=== PATIENT | female | born 1995 | race Caucasian/White ===

== ENCOUNTER 2019-02-02 23:38 | Emergency (ER) | payer SELFPAY ==
[~2019-02-02] VITALS: Ht 160 cm; Wt 56.7 kg
--- OUTSIDE RECORDS SUMMARY | 2019-02-02 23:46 | XMS REPORT ---
Author Author STEPHANSHEMAR SCALES 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 Name Role Phone SHEMAR GONZALEZ Unavailable PROBLEMS Type Condition ICD9-CM Code [id number] Code Onset Dates Condition Status SNOMED Code Problem Dysuria R30.0 Active 54783366 Problem Weight loss R63.4 Active 196464525 Problem IUD (intrauterine device) in place Z97.5 Active 588996840 Problem Urinary frequency R35.0 Active 430357665 ALLERGIES No Known Allergies ENCOUNTERS Encounter Location Date Diagnosis [facility] [address] [id number] Aug, Caries K02.9 [facility] [address] [id number] Aug, Caries K02.9 ; Dental examination Z01.20 ; Dental plaque K03.6 and Encounter for prophylactic administration of fluoride Z29.3 [facility] [address] [id number] Jun, Dental examination Z01.20 [facility] [id number] [place] [address] Nov, Surveillance for control, intrauterine device Z30.431 ; Irregular menses N92.6 and Dysmenorrhea N94.6 [facility] [id number] [place] [address] Nov, Urinary tract infection without hematuria, site unspecified N39.0 ; Dysuria R30.0 ; Urinary frequency R35.0 ; Weight loss R63.4 ; IUD ( intrauterine device) in place Z97.5 ; Vaginal yeast infection B37.3 and Vaginal discharge N89.8 [facility] [address] [phone] 14 Feb, 2015 [facility] [id number], [place] [address] Feb, [facility] [id number] [address] Nov, [facility] [id number] [address] Nov, [facility] [address], [place] [address] Nov, [facility] [address] [address] Nov, [facility] [address], [place] [address] Nov, [facility] [address] [address] Nov, [facility] [address] [id number], [place] [address] Jun, IMMUNIZATIONS No Known Immunizations SOCIAL HISTORY Never Assessed REASON FOR VISIT ZACK Reyez TE #14. Dr. Aparicio evaluated this tooth for endo and gave poor prognosis/ PLAN OF CARE Activity Details Follow Up prn Reason:Restorative VITAL SIGNS Height 63.75 in 2018-09-24 Blood pressure systolic 112 mmHg 2018-09-24 Blood pressure diastolic 70 mmHg 2018-09-24 MEDICATIONS Medication Instructions Dosage Frequency Start Date End Date Duration Status Amoxicillin 500 mg Orally every 8 hrs 1 capsule 8h 7 days Not-Taking RESULTS No Results PROCEDURES Procedure Date Ordered Result Body Site EXTRAC ERUPTED TOOTH/EXPOSED ROOT Sep 24, 2018 EXTRAC ERUPTED TOOTH/EXPOSED ROOT Sep 24, 2018 EXTRAC ERUPTED TOOTH/EXPOSED ROOT Sep 24, 2018 INSTRUCTIONS MEDICATIONS ADMINISTERED No Known Medications MEDICAL (GENERAL) HISTORY Type Description Date Surgical History Appendectomy Surgical History Tonsillectomy & adenoidectomy Hospitalization History past surgery Hospitalization History Dehydration Hospitalization History pneumonia
--- OUTSIDE RECORDS SUMMARY | 2019-02-02 23:46 | XMS REPORT ---
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 Name Role Phone MIKE MARQUEZ Unavailable PROBLEMS Type Condition ICD9-CM Code [id number] Code Onset Dates Condition Status SNOMED Code Problem Dysuria R30.0 Active 31745503 Problem Weight loss R63.4 Active 324912895 Problem IUD (intrauterine device) in place Z97.5 Active 122257261 Problem Urinary frequency R35.0 Active [id number] ALLERGIES No Known Allergies ENCOUNTERS Encounter Location Date Diagnosis [facility] [id number] [place] [phone] Aug, Caries K02.9 [facility] [address] [id number] Aug, Caries K02.9 ; Dental examination Z01.20 ; Dental plaque K03.6 and Encounter for prophylactic administration of fluoride Z29.3 [facility] [id number] [place] [phone] Jun, Dental examination Z01.20 [facility] [address] [place] [address] Nov, Surveillance for control, intrauterine device Z30.431 ; Irregular menses N92.6 and Dysmenorrhea N94.6 [facility] [address] [place] [address] Nov, Urinary tract infection without hematuria, site unspecified N39.0 ; Dysuria R30.0 ; Urinary frequency R35.0 ; Weight loss R63.4 ; IUD ( intrauterine device) in place Z97.5 ; Vaginal yeast infection B37.3 and Vaginal discharge N89.8 [facility] [id number], [place] [address] 14 Feb, 2015 [facility] [id number] [address] Feb, [facility] [address], [place] [address] Nov, [facility] [id number], [place] [address] Nov, [facility] [id number], [place] [address] Nov, [facility] [id number], [place] [address] Nov, [facility] [address], [place] [address] Nov, [facility] [address] [address] Nov, [facility] [id number], [place] [address] Jun, IMMUNIZATIONS No Known Immunizations SOCIAL HISTORY Never Assessed REASON FOR VISIT PROPHY/CORY PLAN OF CARE Activity Details Follow Up ZEKE Reason:Multi Extrations Dr Nearing 1.5 hours VITAL SIGNS Height 63.75 in 2018-09-15 Blood pressure systolic 116 mmHg 2018-09-15 Blood pressure diastolic 66 mmHg 2018-09-15 MEDICATIONS Medication Instructions Dosage Frequency Start Date End Date Duration Status Amoxicillin 500 mg Orally every 8 hrs 1 capsule 8h 7 days Not-Taking RESULTS No Results PROCEDURES Procedure Date Ordered Result Body Site COMP ORAL EVALUATION - NEW/EST PT Sep 15, 2018 INTRAORL-PERIAPICAL 1 FILM 16242 Sep 15, 2018 TOPICAL FLUORIDE VARNISH Sep 15, 2018 BITEWINGS - THREE FILMS Sep 15, 2018 INTRAORL-PERIAPICAL EA ADD FILM Sep 15, 2018 INTRAORL-PERIAPICAL EA ADD FILM Sep 15, 2018 PROPHYLAXIS - ADULT Sep 15, 2018 PANORAMIC FILM SEE ALSO CODE 94124 Sep 15, 2018 INSTRUCTIONS MEDICATIONS ADMINISTERED No Known Medications MEDICAL (GENERAL) HISTORY Type Description Date Surgical History Appendectomy Surgical History Tonsillectomy & adenoidectomy Hospitalization History past surgery Hospitalization History Dehydration Hospitalization History pneumonia
--- OUTSIDE RECORDS SUMMARY | 2019-02-02 23:46 | XMS REPORT ---
Author Author STEPHANSHEMAR SCALES [facility] DENT[facility] Address Unknown Care Team Providers Care Hot Room Attendant Name Role Phone SHEMAR GONZALEZ Unavailable PROBLEMS Type Condition ICD9-CM Code SKA48-IR Code Onset Dates Condition Status SNOMED Code Problem Dysuria R30.0 Active 74981584 Problem Weight loss R63.4 Active 679134196 Problem IUD (intrauterine device) in place Z97.5 Active 372034912 Problem Urinary frequency R35.0 Active [id number] ALLERGIES No Known Allergies ENCOUNTERS Encounter Location Date Diagnosis [facility] [id number] [place] [phone] Aug, [facility] [id number] [place] [phone] Jun, Dental examination Z01.20 [facility] [id number] [place] [address] Nov, Surveillance for control, intrauterine device Z30.431 ; Irregular menses N92.6 and Dysmenorrhea N94.6 [facility] [id number] [place] [address] Nov, Urinary tract infection without hematuria, site unspecified N39.0 ; Dysuria R30.0 ; Urinary frequency R35.0 ; Weight loss R63.4 ; IUD ( intrauterine device) in place Z97.5 ; Vaginal yeast infection B37.3 and Vaginal discharge N89.8 [facility] [id number] [place] [address] Feb, [facility] [id number] [place] [address] Feb, [facility] [address] [address] Nov, [facility] [address] [facility] [id number] [place] [address] Nov, [facility] [address] [facility] [id number] [address] Nov, [facility] [address] [facility] [id number], [place] [address] Nov, [facility] [address] [facility] [id number], [place] [address] Nov, [facility] [address] [facility] [id number], [place] [address] Nov, [facility] [address] [facility] [id number], [place] [address] Jun, IMMUNIZATIONS No Known Immunizations SOCIAL HISTORY Never Assessed REASON FOR VISIT ALCON PLAN OF CARE Activity Details Follow Up prn Reason:CORY with HYG VITAL SIGNS Height 63.75 in 2018-07-15 Blood pressure systolic 112 mmHg 2018-07-15 Blood pressure diastolic 64 mmHg 2018-07-15 MEDICATIONS Medication Instructions Dosage Frequency Start Date End Date Duration Status Amoxicillin 500 mg Orally every 8 hrs 1 capsule 8h 07 days Active RESULTS No Results PROCEDURES Procedure Date Ordered Result Body Site LTD ORAL EVALUATION - PROBLEM FOCUS Jul 15, 2018 INTRAORL-PERIAPICAL 1 FILM 42409 Jul 15, 2018 BITEWING - SINGLE FILM Jul 15, 2018 INSTRUCTIONS MEDICATIONS ADMINISTERED No Known Medications MEDICAL (GENERAL) HISTORY Type Description Date Surgical History Appendectomy Surgical History Tonsillectomy & adenoidectomy Hospitalization History past surgery Hospitalization History Dehydration Hospitalization History pneumonia
--- OUTSIDE RECORDS SUMMARY | 2019-02-02 23:46 | XMS REPORT | Continuity of Care Document ---
Author Author [facility] Address Unknown Phone Unavailable Allergies Active Description Code Type Severity Reaction Onset Reported/Identified Relationship to Patient Clinical Status Yes SULFA (SULFONAMIDE ANTIBIOTICS) UNKNOWN UNKNOWN Medications There is no data. Problems Date Dx Coded Attending Type Code Diagnosis Diagnosed By 07/24/2008 ISIDRA FORREST APRN 706.1 ACNE 07/24/2008 ISIDRA FORREST APRN 786.2 COUGH 07/24/2008 ISIDRA FORREST APRN V05.8 GARDASIL, SHINGLES, OTHER SPECIFIED DISEASE 07/24/2008 ISIDRA FORREST APRN V70.3 SPORTS/SCHOOL EXAM 08/21/2008 ISIDRA FORREST APRN 780.52 INSOMNIA UNSPECIFIED 08/21/2008 ISIDRA FORREST APRN A 788.30 INCONTINENCE ENURESOS/URINARY 07/16/2009 ISIDRA FORREST APRN V70.4 EXAMINATION FOR MEDICOLEGAL REASONS 12/20/2013 ISIDRA FORREST APRN 611.71 MASTODYNIA 12/20/2013 ISIDRA FORREST APRN A 626.2 MENORRHAGIA 12/20/2013 ISIDRA FORREST APRN V25.42 CONTRACEPTION SURVEILLANCE (IUD) 12/20/2013 ISIDRA FORREST APRN V74.5 STD SCREEN 11/10/2018 SILVESTRE BRASWELL V76.2 SCREENING FOR MALIGNANT NEOPLASMS OF THE CERVIX 11/10/2018 SILVESTRE BRASWELL Z12.4 ENCOUNTER FOR SCREENING FOR MALIGNANT NEOPLASM OF CERVIX 11/10/2018 SILVESTRE BRASWELL V76.2 SCREENING FOR MALIGNANT NEOPLASMS OF THE CERVIX 11/10/2018 SILVESTRE BRASWELL Z12.4 ENCOUNTER FOR SCREENING FOR MALIGNANT NEOPLASM OF CERVIX 11/10/2018 SILVESTRE BRASWELL V76.2 SCREENING FOR MALIGNANT NEOPLASMS OF THE CERVIX 11/10/2018 SILVESTRE BRASWELL12.4 ENCOUNTER FOR SCREENING FOR MALIGNANT NEOPLASM OF CERVIX Procedures Code [place] [address] TEST, URINE (IN- HOUSE) 12/20/2013 73103 TRICHOMONAS (IN-HOUSE) 12/20/2013 22105 GC/CHLAM PROBE (STATE) 12/20/2013 71836 CULTURE UROGENITAL 12/22/2013 Results Test Result Range IGP,CtNg,AptimaHPV,rfx16/18,45 - 11/10/18 13:30 Chlamydia, Nuc. Acid Amp Negative Negative Gonococcus, Nuc. Acid Amp Negative Negative HPV Aptima Negative Negative DIAGNOSIS: Comment Specimen adequacy: Comment Performed by: Comment Electronically signed by: Comment . . Pathologist provided ICD10: Comment Note: Comment Test Methodology: Comment Encounters ACCT No. Visit Date/Time Discharge Status Pt. Type Provider Facility Loc./Unit Complaint [id number] 12/20/2013 17:59:00 12/20/2013 23:59:59 CLS Outpatient ISIDRA FORREST APRN [id number] 03/02/2015 13:15:00 03/02/2015 23:59:59 CLS Outpatient SILVESTRE BRASWELL MD [facility] [id number] 11/18/2018 15:27:00 Document Registration [id number] 01/13/2019 15:00:00 01/13/2019 23:59:59 CLS Outpatient [facility] 03/02/2015 13:16:55 ACT Document Registration [id number] 11/10/2018 14:41:00 11/10/2018 23:59:00 DIS Outpatient SILVESTRE BRASWELL [id number] 11/10/2018 13:21:00 11/10/2018 23:59:00 DIS Outpatient SILVESTRE BRASWELL [id number] 09/28/2017 13:13:36 Document Registration
[2019-02-02 23:50] VITALS: BP_SYST 121; BP_SYST 125; BP_SYST 129; BP_DIAS 88; BP_DIAS 91; BP_DIAS 96
[2019-02-02] MEDS ORDERED: NORG1TAB14 (23:51)
[2019-02-03 00:42] LABS: BILIRUBIN,URINE NEGATIVE (NEGATIVE); CLARITY,URINE CLEAR; COLOR,URINE YELLOW; GLUCOSE, URINE (UA) NEGATIVE (NEGATIVE); KETONES,URINE 3+ (NEGATIVE); LEUKOCYTE ESTERASE ,URINE 1+ (NEGATIVE); NITRITE,URINE NEGATIVE (NEGATIVE); PH,URINE 6 (5-9); PROTEIN,URINE 1+ (NEGATIVE); UROBILINOGEN,URINE 1 MG/DL (NORMAL)
[2019-02-03 00:47] LABS: BASOPHILS % (AUTO) 0 % (0-10); EOSINOPHILS # (AUTO) 0.1 10^3/uL (0.0-0.3); EOSINOPHILS % (AUTO) 2 % (0-10); HEMATOCRIT 41 % (35-52); HEMOGLOBIN 14.7 G/DL (11.5-16.0); LYMPHOCYTES # (AUTO) 2.4 X 10^3 (1.0-4.0); LYMPHOCYTES % (AUTO) 39 % (12-44); MEAN CORPUSCULAR HEMOGLOBIN 31 PG (25-34); MEAN CORPUSCULAR HGB CONC 36 G/DL (32-36); MEAN CORPUSCULAR VOLUME 85 FL (80-99); MEAN PLATELET VOLUME 9.9 FL (7.4-10.4); MONOCYTES # (AUTO) 0.6 X 10^3 (0.0-1.0); MONOCYTES % (AUTO) 9 % (0-12); NEUTROPHILS % (AUTO) 50 % (42-75); PLATELET COUNT 203 10^3/uL (130-400); RED CELL DISTRIBUTION WIDTH 13.6 % (10.0-14.5)
[2019-02-03 00:52] LABS: AMPHETAMINE SCREEN, URINE POSITIVE (NEGATIVE); BACTERIA,URINE FEW /HPF; BARBITURATE SCREEN URINE NEGATIVE (NEGATIVE); BENZODIAZEPINES SCREEN URINE NEGATIVE (NEGATIVE); CANNABINOID SCREEN, URINE POSITIVE (NEGATIVE); COCAINE SCREEN URINE NEGATIVE (NEGATIVE); METHADONE STAT NEGATIVE (NEGATIVE); METHAMPHETAMINE SCREEN URINE S NEGATIVE (NEGATIVE); OPIATE SCREEN URINE NEGATIVE (NEGATIVE); OXYCODONE STAT NEGATIVE (NEGATIVE); PROPOXYPHENE STAT NEGATIVE (NEGATIVE); RBC,URINE 0-2 /HPF; SQUAMOUS EPITHELIAL CELL,UR 25-50 /HPF; TRICYCLIC ANTIDEPRESSANTS SCRE NEGATIVE (NEGATIVE); WBC,URINE 0-2 /HPF
[2019-02-03 01:07] LABS: ALANINE AMINOTRANSFERASE 11 U/L (0-55); ALBUMIN 4.9 GM/DL (3.2-4.5); ALKALINE PHOSPHATASE 51 U/L (40-136); BILIRUBIN,TOTAL 1.4 MG/DL (0.1-1.0); BUN/CREATININE RATIO 13; CALCIUM 9.5 MG/DL (8.5-10.1); CARBON DIOXIDE 24 MMOL/L (21-32); CHLORIDE 107 MMOL/L (98-107); CREATININE SERUM 0.83 MG/DL (0.60-1.30); GFR ESTIMATED > 60; GLUCOSE 115 MG/DL (70-105); MAGNESIUM 2.4 MG/DL (1.8-2.4); POTASSIUM 3.5 MMOL/L (3.6-5.0); SODIUM 141 MMOL/L (135-145); TOTAL PROTEIN 7.4 GM/DL (6.4-8.2)
[2019-02-03 01:27] LABS: TSH (THYROID ANALYZER) 2.12 UIU/ML (0.35-4.94)
--- NOTE | 2019-02-03 01:55 | ED Syncope ---
General Chief Complaint: Dizziness/Syncope Stated Complaint: PASSED OUT AT HOME-UNWITNESSED FALL TO FLOOR Nursing Triage Note: syncopal episode. Allergies and Home Medications Allergies Coded Allergies: No Known Drug Allergies (Unverified , 02/02/19) Past Yxicwds-Obvbqd-Xcneyf Hx Patient Social History Alcohol Use: Denies Use Recreational Drug Use: No Smoking Status: Never a Smoker 2nd Hand Smoke Exposure: No Recent Foreign Travel: No Contact w/Someone Who Travel: No Recent Infectious Disease Expo: No Recent Hopitalizations: No Immunizations Up To Date Tetanus Booster (TDap): Unknown PED Vaccines UTD: Yes Seasonal Allergies Seasonal Allergies: No Past Medical History Surgeries: Yes Adenoidectomy, Appendectomy, Orthopedic, Tonsillectomy Respiratory: No Cardiac: No Neurological: No : No Last Menstrual Period: Jan 12, 2019 Genitourinary: No Gastrointestinal: No Musculoskeletal: No Endocrine: No HEENT: No Cancer: No Psychosocial: No Integumentary: No Blood Disorders: No Physical Exam Vital Signs Vital Signs - First Documented 02/02/19 23:48 Temp 97.1 Pulse 98 Resp 16 B/P (MAP) 129/93 (105) Pulse Ox 99 O2 Delivery Room Air Capillary Refill : Less Than 3 Seconds Height, Weight, BMI Height: 5'3.00" Weight: 125lbs. oz. 56.725052kh; BMI Method:Stated Progress/Results/Core Measures Results/Orders Lab Results Laboratory Tests Test 02/03/19 00:35 02/03/19 00:40 Range/Units Urine Color YELLOW Urine Clarity CLEAR Urine pH 6 5-9 Urine Specific Douglas 1.025 H 1.016-1.022 Urine Protein 1+ H NEGATIVE Urine Glucose (UA) NEGATIVE NEGATIVE Urine Ketones 3+ H NEGATIVE Urine Nitrite NEGATIVE NEGATIVE Urine Bilirubin NEGATIVE NEGATIVE Urine Urobilinogen 1 NORMAL MG/DL Urine Leukocyte Esterase 1+ H NEGATIVE Urine RBC (Auto) NEGATIVE NEGATIVE Urine RBC 0-2 /HPF Urine WBC 0-2 /HPF Urine Squamous Epithelial Cells 25-50 H /HPF Urine Crystals NONE /LPF Urine Bacteria FEW H /HPF Urine Casts NONE /LPF Urine Mucus NEGATIVE /LPF Urine Culture Indicated NO Urine Opiates Screen NEGATIVE NEGATIVE Urine Oxycodone Screen NEGATIVE NEGATIVE Urine Methadone Screen NEGATIVE NEGATIVE Urine Propoxyphene Screen NEGATIVE NEGATIVE Urine Barbiturates Screen NEGATIVE NEGATIVE Ur Tricyclic Antidepressants Screen NEGATIVE NEGATIVE Urine Phencyclidine Screen NEGATIVE NEGATIVE Urine Amphetamines Screen POSITIVE H NEGATIVE Urine Methamphetamines Screen NEGATIVE NEGATIVE Urine Benzodiazepines Screen NEGATIVE NEGATIVE Urine Cocaine Screen NEGATIVE NEGATIVE Urine Cannabinoids Screen POSITIVE H NEGATIVE White Blood Count 6.0 4.3-11.0 10^3/uL Red Blood Count 4.80 4.35-5.85 10^6/uL Hemoglobin 14.7 11.5-16.0 G/DL Hematocrit 41 35-52 % Mean Corpuscular Volume 85 80-99 FL Mean Corpuscular Hemoglobin 31 25-34 PG Mean Corpuscular Hemoglobin Concent 36 32-36 G/DL Red Cell Distribution Width 13.6 10.0-14.5 % Platelet Count 203 130-400 10^3/uL Mean Platelet Volume 9.9 7.4-10.4 FL Neutrophils (%) (Auto) 50 42-75 % Lymphocytes (%) (Auto) 39 12-44 % Monocytes (%) (Auto) 9 0-12 % Eosinophils (%) (Auto) 2 0-10 % Basophils (%) (Auto) 0 0-10 % Neutrophils # (Auto) 3.0 1.8-7.8 X 10^3 Lymphocytes # (Auto) 2.4 1.0-4.0 X 10^3 Monocytes # (Auto) 0.6 0.0-1.0 X 10^3 Eosinophils # (Auto) 0.1 0.0-0.3 10^3/uL Basophils # (Auto) 0.0 0.0-0.1 10^3/uL Sodium Level 141 135-145 MMOL/L Potassium Level 3.5 L 3.6-5.0 MMOL/L Chloride Level 107 98-107 MMOL/L Carbon Dioxide Level 24 21-32 MMOL/L Anion Gap 10 5-14 MMOL/L Blood Urea Nitrogen 11 7-18 MG/DL Creatinine 0.83 0.60-1.30 MG/DL Estimat Glomerular Filtration Rate > 60 BUN/Creatinine Ratio 13 Glucose Level 115 H 70-105 MG/DL Calcium Level 9.5 8.5-10.1 MG/DL Corrected Calcium 8.5-10.1 MG/DL Magnesium Level 2.4 1.8-2.4 MG/DL Total Bilirubin 1.4 H 0.1-1.0 MG/DL Aspartate Amino Transf (AST/SGOT) 18 5-34 U/L Alanine Aminotransferase (ALT/SGPT) 11 0-55 U/L Alkaline Phosphatase 51 40-136 U/L Total Protein 7.4 6.4-8.2 GM/DL Albumin 4.9 H 3.2-4.5 GM/DL TSH Love Testing 2.12 0.35-4.94 UIU/ML Serum Alcohol < 10 <10 MG/DL My Orders Orders - MAYELIN NUNEZ DO Saline Lock/Iv-Start (02/03/19:13) Urine Bedside (02/03/19:13) Monitor-Rhythm Ecg Trace Only (02/03/19:13) Orthostatic Vital Signs (Adult (02/03/19:) Cbc With Automated Diff (02/03/19:) Comprehensive Metabolic Panel (02/03/19:) Magnesium (02/03/19:) Ua Culture If Indicated (02/03/19:) Ct Head Wo (02/03/19:13) Ekg Tracing (02/03/19:) Chest Pa/Lat (2 View) (02/03/19:13) Alcohol (02/03/19:13) Drug Screen Stat (Urine) (02/03/19:13) Thyroid Analyzer (02/03/19:) Vital Signs/I&O 02/02/19 02/02/19 23:48 23:50 Temp 97.1 Pulse 98 105 99 97 Resp 16 B/P (MAP) 129/93 (105) 125/91 (102) 129/88 (102) 121/96 (104) Pulse Ox 99 O2 Delivery Room Air Blood Pressure Mean: 104 Departure Impression Primary Impression: Syncope Additional Impression: Illicit drug use Disposition: HOME, SELF-CARE Condition: Stable Departure-Patient Inst. Referrals: SILVESTRE BRASWELL MD (PCP) Primary Care Physician Patient Instructions: Drug Abuse and Drug Addiction (DC), Syncope (Fainting) ( DC) Add. Discharge Instructions: LOTS OF CLEAR LIQUIDS--WATER, BROTH, JELLO, GATORADE TYLENOL 1 GRAM / MOTRIN 800 MG 4 TIMES A DAY NEEDED FOR PAIN FOLLOW UP WITH YOUR DR THIS WEEK FOR FURTHER CARE, RETURN TO ER IF WORSE All discharge instructions reviewed with patient and/or family. Voiced understanding. MAYELIN NUNEZ DO Feb 03, 2019 01:55
[2019-02-03 02:04] VITALS: BP 109/78
--- NOTE | 2019-02-03 07:15 | Diagnostic Imaging Report ---
CHEST PA/LAT (2 VIEW) Indication: Headache Comparison: None available. Findings: No focal pneumonic consolidation, pleural effusion or pneumothorax. Normal heart size and pulmonary vasculature. Impression: No acute cardiopulmonary process. Dictated by: Dictated on workstation # [id number]
--- NOTE | 2019-02-03 07:58 | Diagnostic Imaging Report ---
PROCEDURE: CT head without contrast. TECHNIQUE: Multiple contiguous axial images were obtained through the brain without the use of intravenous contrast. INDICATION: Headache. No prior examinations are available for comparison. FINDINGS: The ventricles and sulci are within normal limits. There is hydrocephalus. There is no midline shift. There is no intracranial mass, hemorrhage or extra-axial fluid collection. Calvarium is intact. There is minimal bilateral maxillary sinus mucosal thickening. IMPRESSION: No acute intracranial abnormality. Mild sinus disease. Dictated by: Dictated on workstation # [id number]
== END 2019-02-03 02:04 | disposition home or self-care (01) ==
LOC: EDUNIT# 23:38 → ER 23:43
DX: R55 Syncope and collapse (principal); F19.10 Other psychoactive substance abuse, uncomplicated; Z90.89 Acquired absence of other organs; Z90.49 Acquired absence of other specified parts of digestive tract; W19.XXXA Unspecified fall, initial encounter; Y92.009 Unspecified place in unspecified non-institutional (private) residence as the place of occurrence of the external cause
CPT/HCPCS: 36415; 70450; 71046; 80053; 80306; 80320; 81000; 83735; 84443; 84703; 85025; 93005; 93041